=== PATIENT | female | born 1965 | race Caucasian/White ===

== ENCOUNTER 2021-02-21 15:45 | Emergency (ER) | payer SELFPAY ==
[~2021-02-21 15:45] MED LIST: Sodium Chloride 0.9% 100 ML BAG ONE
[2021-02-21 16:43] LABS: #Basophils 0.1 thou/uL (0.0-0.2); #Eosinphils 0.1 thou/uL (0.0-0.7); #Lymphocytes 1.5 thou/uL (1.20-3.40); #Monocytes 0.3 thou/uL (0.11-0.59); %Basophils 1.6 % (0.0-1.0); %Lymphocytes 36.8 % (21.0-51.0); %Monocytes 7.4 % (0.0-10.0); %Neutrophils 51.2 % (42.0-75.0); Hemoglobin 13.4 g/dL (12.0-16.0); Mean Corpuscular HGB CONC 31.5 g/dL (32.0-36.0); Mean Corpuscular Hemoglobin 31.5 pg (27.0-31.0); Mean Corpuscular Volume 99.8 fL (78.0-98.0); Platelet Count 302 thou/uL (130-400); RBC Distribution Width 12.7 % (11.5-14.5); Red Blood Cell (RBC) Count 4.27 mill/uL (4.20-5.40)
[2021-02-21 17:01] LABS: ALT (SGPT) 7 U/L (8-55); AST (SGOT) 17 U/L (5-34); Alkaline Phosphatase 81 U/L (40-110); Anion Gap 16 mmol/L (10-20); BUN (Urea Nitrogen) 10 mg/dL (9.8-20.1); Bilirubin, Total 0.4 mg/dL (0.2-1.2); Calc. Creatinine Clearance 0 mL/min (70-130); Calcium 9.2 mg/dL (7.8-10.44); Carbon Dioxide 25 mmol/L (22-29); Chloride 106 mmol/L (98-107); Globulin 2.7 g/dL (2.4-3.5); Glucose 84 mg/dL (70-105); Potassium 4.3 mmol/L (3.5-5.1); Protein, Total 6.7 g/dL (6.0-8.3); Sodium 143 mmol/L (136-145)
[2021-02-21] MEDS ORDERED: Aspirin 325 MG TAB ONE (21:08)
[2021-02-21] MEDS ORDERED: Lorazepam 1 MG TAB ONE (21:08)
== END 2021-02-21 21:40 | disposition short-term general hospital (02) ==
LOC: MADERS 15:45
DX: R42 Dizziness and giddiness (principal); M54.2 Cervicalgia; R53.1 Weakness; R53.81 Other malaise; M25.512 Pain in left shoulder; R26.9 Unspecified abnormalities of gait and mobility; R29.700 NIHSS score 0
CPT/HCPCS: 70496; 70498; 71045; 80053; 83880; 84484; 85025; 93005; J3490